=== PATIENT | female | born 1945 | race Caucasian/White ===

== ENCOUNTER 2017-11-04 15:52 | Emergency (ER) | payer OTHER ==
[~2017-11-04] VITALS: Ht 167.6 cm; Wt 96.4 kg
[~2017-11-04 15:52] MED LIST: ABILIFY2 MG PO; AMLODIPINE BESY10 MG PO; ANORO ELLIPTA1 EACH IH; APRESOLINE50 MG PO; ASPIR-LOW81 MG PO; ATORVASTATIN CA10 MG PO; ATORVASTATIN CA40 MG PO; CARDIZEM CD,CA240 MG PO; CATAPRES-TTS 11 EACH TD; CEFTIN500 MG PO; DIGITEK125 MC2 PO; DUONEB 2.5-0.5 M3 ML AEROSOL; ESCITALOPRAM OX10 MG PO; FUROSEMIDE40 MG PO; GLIPIZIDE5 MG PO; HYDRALAZINE HCL50 MG PO; HYDROCHLOROTHIA25 MG PO; JANTOVEN10 MG PO; JANTOVEN7.5 MG PO; LANTUS 10100 UNITS/ SC; LEXAPRO10 MG PO; LOPRESSOR50 MG PO; LORAZEPAM0.5 MG PO; LOSARTAN POTAS100 MG PO; METAXALONE800 MG PO; METOPROLOL TART50 MG PO; NOVOLOG PE100 UNITS/ SC; OXYCODONE HCL5 MG PO; OXYCONTIN10 MG PO; PREDNISONE10 MG PO; PROTONIX40 MG PO; TRAMADOL HCL50 MG PO; WARFARIN SODIUM10 MG PO; XARELTO20 MG PO
[2017-11-04 16:53] LABS: BASOPHIL (%) 0.4 % (0-1); BASOPHIL COUNT 0.1 K/uL (0-0.1); EOSINOPHIL (%) 0.2 % (0-5); HEMATOCRIT 37.6 % (36.0-46.0); HEMOGLOBIN 12.7 G/DL (11.9-15.5); IMMATURE GRANULOCYTE (%) 0.6 % (0.0-0.7); LYMPHOCYTE (%) 6.5 % (15-42); LYMPHOCYTE COUNT 0.9 K/uL (1.0-2.8); MCHC 33.8 G/DL (30.0-36.0); MCV 88.9 FL (83-99); MONOCYTE COUNT 0.6 K/uL (0-0.8); NEUTROPHIL (%) 88.3 % (45-76); NEUTROPHIL COUNT 12.4 K/uL (1.8-6.4); PLATELET COUNT 266 K/uL (156-360); RBC DIS.WIDTH-CV 12.7 % (11.8-14.6); RBC DIS.WIDTH-SD 41.7 % (39-53); RED BLOOD COUNT 4.23 M/uL (3.80-5.20); WHITE BLOOD COUNT 14.1 K/uL (4.1-10.2)
[2017-11-04 17:05] LABS: ALBUMIN 3.7 g/dL (3.2-4.8); CHLORIDE 103 mEq/L (99-109); POTASSIUM 4.4 mEq/L (3.7-5.4); SODIUM 138 mEq/L (136-147)
[2017-11-04 17:07] LABS: GLUCOSE 236 mg/dL (70-99)
[2017-11-04 17:08] LABS: TOTAL PROTEIN 7.1 g/dL (6.4-8.3)
[2017-11-04 17:09] LABS: TOTAL BILIRUBIN 0.7 mg/dL (0.0-1.0)
[2017-11-04 17:11] LABS: ALKALINE PHOSPHATASE 73 IU/L (3-129); CREATININE 1.5 mg/dL (0.6-1.3); GFR ESTIMATE (CALCULATED) 36 mL/min/
[2017-11-04 17:12] LABS: UREA NITROGEN (BUN) 39 mg/dL (9-23)
[2017-11-04 17:13] LABS: AST (GOT) 32 IU/L (2-34)
[2017-11-04 17:14] LABS: ALT (GPT) 27 IU/L (3-49)
[2017-11-04 17:15] LABS: LIPASE 20 U/L (1.0-51.0)
[2017-11-04 18:23] LABS: APPEARANCE SL.HAZY ((CLEAR)); BILIRUBIN NEGATIVE; BLOOD SMALL; COLOR YELLOW ((YELLOW)); GLUCOSE (STRIP) 150; KETONES 20; LEUKOCYTES MODERATE; NITRITE NEGATIVE; PROTEIN (STRIP) >=500; SPECIFIC GRAVITY 1.016 (1.000-1.030); UROBILINOGEN 0.2 MG/DL (0.2-1.0)
[2017-11-04 18:28] LABS: BACTERIA 3+ /HPF; EPITHELIAL CELLS 1+ /HPF; MUCUS TRACE /LPF; RED BLOOD CELLS 0-5 /HPF (0-5); WHITE BLOOD CELLS 20-30 /HPF (0-5)
[2017-11-04] MEDS ORDERED: CIPRO500 MG PO (19:48)
[2017-11-04] MEDS ORDERED: TYLENOL WITH C1 EACH PO (19:48)
[2017-11-04 20:19] VITALS: BP 161/63
== END 2017-11-04 20:19 | disposition home or self-care (01) ==
LOC: EME 15:52
PROVIDERS: Emergency Medicine
DX: N12 Tubulo-interstitial nephritis, not specified as acute or chronic (principal); I10 Essential (primary) hypertension; E11.9 Type 2 diabetes mellitus without complications; I48.91 Unspecified atrial fibrillation; F41.9 Anxiety disorder, unspecified; F32.9 Major depressive disorder, single episode, unspecified; E78.5 Hyperlipidemia, unspecified; Z96.649 Presence of unspecified artificial hip joint; Z79.4 Long term (current) use of insulin; Z87.891 Personal history of nicotine dependence; R07.9 Chest pain, unspecified; R10.30 Lower abdominal pain, unspecified
CPT/HCPCS: 71045; 74176; 80053; 81003; 83690; 85025; 87077; 87086; 87186; 93005; 99281; 99284; J0696; J2270; J2405; J2765; J7030